=== PATIENT | female | born 1945 | race Caucasian/White ===

== ENCOUNTER 2016-12-31 16:18 | Emergency (ER) | payer MEDICARE ==
[2016-12-31 17:39] VITALS: BP 156/125
--- NOTE | 2016-12-31 19:02 | UC ---
Skin Complaint HPI - History of Current Complaint Chief Complaint: UCSkin Time Seen by Provider: 12/31/16 18:49 Stated Complaint: TICK BITE Hx Obtained From: Patient Onset/Duration: Gradual Onset - pt felt small "bump on R outter knee 3 days ago , disregarded it. today noticed a "scab" in same place and looked and saw a tick in leg. she removed it Skin Exposure Onset/Duration: Days Ago - 3 Character: Redness - small red false pass on R knee Aggravating: Nothing Alleviating: Nothing Associated Signs & Symptoms: Positive: Negative Related History: Insect Bite/Sting - Allergy/Home Medications Allergies/Adverse Reactions: Allergies Allergy/AdvReac Type Severity Reaction Status Date / Time Antihistamines, Allergy Severe Swelling Verified 04/07/15 10:34 Diphenhydramine-typ Aspirin [From Excedrin] Allergy Severe Swelling Verified 04/07/15 10:34 Diphenhydramine Allergy Severe Anaphylatic Verified 04/07/15 10:34 [From Benadryl] Shock Phenylephrine Allergy Severe Swelling Verified 04/07/15 10:34 [From Sudafed PE] Of Face,Lips,& Throat Home Medications: Home Medications Mirabegron (NF) [Myrbetriq (NF)] 25 mg PO 12/31/16 [History] Review of Systems Constitutional: Negative Respiratory: Negative Cardiovascular: Negative Gastrointestinal: Negative Musculoskeletal: Negative Neurological: Negative Psychological: Negative All Other Systems Reviewed And Are Negative: Yes PMH/Surg Hx/FS Hx/Imm Hx Previously Healthy: Yes Endocrine History Of: Reports: Diabetes - type 2 dm, Thyroid Disease Cardiovascular History Of: Reports: Hypertension Denies: Pacemaker/ICD, Myocardial Infarction Respiratory History Of: Denies: COPD, Asthma GI/ History Of: Reports: Gastroesophageal Reflux Psychological History Of: Reports: Anxiety - Surgical History Surgical History: Yes Surgery Procedure, Year, and Place: APPENDECTOMY, RIGHT KNEE SURGERY - Family History Known Family History: Positive: None - Social History Occupation: Retired Lives: With Family Alcohol Use: None Substance Use Type: None Smoking Status (MU): Never Smoked Tobacco Have You Smoked in the Last Year: No - Immunization History Most Recent Influenza Vaccination: 2012 Most Recent Tetanus Shot: 2009 Most Recent Pneumonia Vaccination: pt states she has recieved Physical Exam Triage Information Reviewed: Yes Appearance: Well-Appearing, No Pain Distress, Well-Nourished Vital Signs: Initial Vital Signs Temp 98.4 F 12/31/16 17:33 Pulse 76 12/31/16 17:33 Resp 18 12/31/16 17:33 BP 156/125 12/31/16 17:33 Pulse Ox 98 12/31/16 17:33 Vital Signs Reviewed: Yes Respiratory Exam: Normal Cardiovascular Exam: Normal Cardiovascular: Positive: RRR Musculoskeletal Exam: Normal Psychological Exam: Normal Skin: Positive: Other - 5mm flat, circular red estefania outside R knee. tick completely removed Course/Dx - Differential Diagnoses - Skin Complaint Differential Diagnoses: Foreign Body, Local Allergic Reaction, Tick Born Illness - Diagnoses Provider Diagnoses: tick bite Discharge - Discharge Plan Condition: Stable Disposition: HOME Patient Education Materials: Tick Bite (ED), Lyme Disease (ED) Referrals: Ron Alexander MD [Primary Care Provider] - (if problems arise from bite) Additional Instructions: keep area clean and dry review signs of Lyme disease and report any symptoms you may develop
[2016-12-31] MEDS ORDERED: DOXYcycline CAP(*) 100 MG PO ONE (19:08)
== END 2016-12-31 19:24 | disposition home or self-care (01) ==
LOC: UCEAST 16:18
DX: S80.261A Insect bite (nonvenomous), right knee, initial encounter (principal); W57.XXXA Bitten or stung by nonvenomous insect and other nonvenomous arthropods, initial encounter; Y93.9 Activity, unspecified; Y92.9 Unspecified place or not applicable; Z88.6 Allergy status to analgesic agent; Z88.8 Allergy status to other drugs, medicaments and biological substances
CPT/HCPCS: 99212; A9270-GY; G0463